=== PATIENT | male | born 1940 | race Caucasian/White ===

== ENCOUNTER 2024-04-03 17:06 | Emergency (ER) | payer MEDICARE, SELFPAY ==
--- NOTE | 2024-04-03 17:07 | ED.EAR ---
HPI - Ear Problem General Chief complaint: Ear Stated complaint: EARS CLOGGED Time Seen by Provider: 04/03/24 17:15 Source: patient, RN notes reviewed and old records reviewed Mode of arrival: ambulatory Limitations: no limitations History of Present Illness HPI Narrative: 83-year-old male presents to the [facility] with complaints of decreased hearing with his hearing aids. Was seen at [facility] hearing aid department and was referred here to have his ears cleaned out. Related Data Home Medications Medication Instructions Recorded Confirmed metoprolol tartrate 25 mg tablet 25 mg PO BID 04/03/24 04/03/24 Allergies Allergy/AdvReac Type Severity Reaction Status Date / Time No Known Allergies Allergy Verified 04/03/24 17:36 Review of Systems Review of Systems: All systems reviewed & are unremarkable except as noted in HPI and below Constitutional: Constitutional: Reports no additional constitutional complaints Eyes: Eyes: Reports no additional eye complaints ENT: Reports as per HPI Cardiovascular: Cardiovascular: Reports no additional cardiovascular complaints, Denies chest pain and Denies dyspnea Respiratory: Respiratory: Reports no additional respiratory complaints, Denies chest congestion, Denies cough and Denies dyspnea Gastrointestinal: Gastrointestinal: Reports no additional gastrointestinal complaints, Denies abdominal pain, Denies nausea and Denies vomiting Musculoskeletal: Musculoskeletal: Reports no additional musculoskeletal complaints Integumentary/Breasts: Skin/Breast: Reports system reviewed and no additional complaints, except as docu Neurologic: Reports system reviewed and no additional complaints, except as documented Psychiatric: Psychiatric: Reports no additional psychiatric complaints Allergic/Immunologic: Allergic/Immunologic: Reports no additional allergic/immunologic complaints [facility] Past Medical History Medical History (Updated 04/03/24 @ 19:00 by Azucena eSverino APRN) Skin cancer Surgical History Surgical History (Updated 04/03/24 @ 18:57 by Azucena Severino APRN) History of ear surgery Right ear Social History Social History (Updated 04/03/24 @ 18:56 by Azucena Severino APRN) Smoking status: Current every day smoker Tobacco type: cigarettes Comments At the time of my signature, I reviewed and agree with the nursing past medical, surgical, social, and family history. There is no relevant family history pertinent to the patient complaint. Exam Const: General: cooperative, comfortable, no acute distress, well developed, alert and well nourished Nutritional Appearance: well nourished Orientation/consciousness: patient oriented x3 Limitations: no limitations HENMT: Head: normal to inspection Ears: hearing grossly normal bilaterally, external ears normal, mastoids normal, no periauricular adenopathy and Abnormal EAC present cerumen impaction bilateral and other (Right ear canal, abnormal in appearance due to surgical modification) Face/Nose/Sinus: Normal external nose present, Normal nares present, Normal nasal mucous membranes and turbinates present, normal facial exam and face symmetric Face and sinus: normal facial exam and face symmetric Eyes: General: appearance normal, both eyes and all related structures Alignment and Position: alignment normal Periorbital: periorbital findings normal Pupils: Equal, round and reactive pupils present EOM: EOMs intact bilaterally Neck: Neck: normal visual inspection, full ROM, no lymphadenopathy and no meningeal signs Chest: Chest palpation & inspection: normal inspection of the chest Resp: Effort & Inspection: normal respiratory effort and able to speak in complete sentences Cardio: Rate: regular rate Skin: General skin exam: normal color and no rashes or lesions noted Lesions: no lesions Rashes: no rashes Trauma: no lacerations or abrasions Wounds: no wounds Neuro: General: patient oriented x3, gait normal, to
[2024-04-03 17:15] VITALS: BP 137/66; PULSE 67; RESP 20; TEMP 36.9; O2SAT 99
== END 2024-04-03 17:40 | disposition home or self-care (01) ==
PROVIDERS: Emergency Provider Nurse Practitioner; PCP Internal Medicine
DX: H61.23 Impacted cerumen, bilateral (principal); F17.210 Nicotine dependence, cigarettes, uncomplicated; Z85.828 Personal history of other malignant neoplasm of skin
CPT/HCPCS: 69210; 99212; G0463